=== PATIENT | male | born 1965 | race Hispanic/Latino ===

== ENCOUNTER 2018-10-02 12:08 | Day surgery (SDC) | payer OTHER ==
[~2018-10-02 12:08] MED LIST: ANCEF/STERILE WATER 2 GM/20 ML IV NR
--- NOTE | 2018-10-02 12:45 | Anesthesia Day of Surgery ---
Anesthesia Day of Surgery - Day of Surgery Patient Examined: Yes Patient H&P Reviewed: Yes Patient is NPO: Yes
[2018-10-02] MEDS ORDERED: SUBLIMAZE IV PRN (12:46)
--- NOTE | 2018-10-02 12:46 | Anesthesia Consultation ---
Anesthesia Consult and Med Hx Date of service: 10/02/18 - Airway Anesthetic Teeth Evaluation: Chipped ROM Head & Neck: Adequate Mental/Hyoid Distance: Adequate Mallampati Class: Class II Intubation Access Assessment: Good - Pre-Operative Health Status ASA Pre-Surgery Classification: ASA2 Proposed Anesthetic Plan: General - Pulmonary Hx Smoking: Yes (STOPPED X 6 YRS ( 1 1/2 PPD X 25 YRS)) Hx Sleep Apnea: No (ALYSON PRESCREEN LOW RISK.) - Cardiovascular System Hx Hypertension: No - Other Systems Hx Cancer: No
[2018-10-02] MEDS ORDERED: NEURONTIN PO NR (13:00)
[2018-10-02] MEDS ORDERED: TYLENOL PO NR (13:00)
[2018-10-02] MEDS ORDERED: TYLENOL PO SCH (13:00)
[2018-10-02] MEDS ORDERED: LACTATED RINGERS 1,000 ML IV SCH (13:00)
[2018-10-02] MEDS ORDERED: ZOFRAN ONE (14:00)
[2018-10-02] MEDS ORDERED: DECADRON ONE (14:00)
[2018-10-02] MEDS ORDERED: SUBLIMAZE ONE (14:31)
[2018-10-02] MEDS ORDERED: XYLOCAINE MPF 2% ONE (14:31)
[2018-10-02] MEDS ORDERED: DIPRIVAN 10 MG/ML IV ONE (14:32)
[2018-10-02] MEDS ORDERED: TORADOL ONE (16:04)
--- NOTE | 2018-10-02 16:07 | Short Stay Summary ---
Short Stay Documentation Date of service: 10/02/18 - History H&P: obtained from office - Allergies and Medications Current Medications: Allergies aspirin Allergy (Verified 09/30/18 10:15) Unknown WAS TOLD A CHILD THAT HE WAS ALLERGIC- UNKNOWN REACTION Home Medications Medication Instructions Recorded Confirmed Last Taken Type Acetaminophen [Tylenol Extra 500 mg PO PRN PRN 09/30/18 10/02/18 10/01/18 History Strength] Naproxen Sodium [Aleve] 220 mg PO Q12HR PRN 10/02/18 10/02/18 09/24/18 History Active Medications Acetaminophen (Tylenol) 650 mg PO ONCE NICOLÁS Stop: 10/02/18 23:59 Last Admin: 10/02/18 13:30 Dose: 650 mg Documented by: Cefazolin Sodium (Ancef/Sterile Water 2 Gm/20 Ml) 2 gm IV PREOP NR Stop: 10/02/18 23:59 Celecoxib (Celebrex) 200 mg PO PREOP NR Stop: 10/02/18 23:59 Last Admin: 10/02/18 13:30 Dose: 200 mg Documented by: Fentanyl (Sublimaze) 50 mcg IV Q5MIN PRN PRN Reason: Pain , Severe (7-10) Stop: 10/02/18 23:59 Gabapentin (Neurontin) 300 mg PO PREOP NR Stop: 10/02/18 23:59 Last Admin: 10/02/18 13:30 Dose: 300 mg Documented by: Hydromorphone HCl (Dilaudid) 0.5 mg IV Q10MIN PRN PRN Reason: Pain , Severe (7-10) Stop: 10/02/18 23:59 Lactated Ringer's (Lactated Ringers) 1,000 mls @ 125 mls/hr IV DIRECT NICOLÁS Last Admin: 10/02/18 13:55 Dose: 125 mls/hr Documented by: - Brief post op/procedure progress note Date of procedure: 10/02/18 Pre-op diagnosis: large rt hydrocele Post-op diagnosis: same Procedure: hydrocelectomy, scrotoplasty, darrin drain Anesthesia: DANN Surgeon: MARTI LOTT Estimated blood loss: minimal Pathology: list (sac & skin) Specimen disposition: to lab Condition: stable - Hospital course [facility] - Disposition Condition at discharge: Stable Disposition: DC-01 TO HOME OR SELFCARE Short Stay Discharge Plan Follow up with: PRIMARY CARE, [Primary Care Provider] - 7 Days
--- NOTE | 2018-10-02 16:20 | Operative Report ---
PREOPERATIVE DIAGNOSIS: Large right hydrocele. POSTOPERATIVE DIAGNOSES: Large right hydrocele. PROCEDURE: Right hydrocelectomy, scrotoplasty. SURGEON: Bucky Huber MD ANESTHESIA: General. ESTIMATED BLOOD LOSS: Minimal. FLUIDS: Crystalloid. COMPLICATIONS: No complications. INDICATIONS: This 53-year-old gentleman seen in the office with a large right hydrocele, grapefruit size. Ultrasound was consistent with hydrocele. No other abnormalities. Risks, benefits, and complications were explained. The patient agreed to proceed with surgical intervention. DESCRIPTION OF PROCEDURE: The patient was taken to the operative suite, placed in a supine position. After adequate general anesthesia, he was prepped and draped in a sterile fashion. The skin was marked due to the large size of the hydrocele. The patient is aware that he was actually interested in a scrotoplasty to reduce the size. Wedge resection of the skin was obtained. Hydrocele sac was excised. Serosanguineous fluid was evacuated. A normal viable testicle could be appreciated. The hydrocele sac was also removed and both sent for routine pathologic evaluation. A 2-0 Vicryl Whipstitch was used in a running fashion along the remnant tunica vaginalis. A small incision was made in the skin for a half inch Aaron drain to reduce the risk of recurrence of fluid. Dartos layer was then closed with 2-0 chromic in a running fashion. The skin was closed with 3-0 chromic in interrupted fashion. Fluffs, mesh, pants were placed. The patient tolerated the procedure well and was extubated and taken to recovery room in stable condition. He will go home on [employer]. JOB# [id number] [facility]
[2018-10-02] MEDS: DILAUDID IV PRN ×2 (16:30→16:42)
[2018-10-02] MEDS ORDERED: NORCO 5/325 PO PRN (17:13)
[2018-10-02] MEDS ORDERED: NORCO 5/325 ONE (17:13)
[2018-10-02 17:26] VITALS: BP 134/92
--- NOTE | 2018-10-03 09:10 | Post Anesthesia Evaluation ---
- Post Anesthesia Evaluation Patient Participated: Yes Airway Patent: Yes Stable Respiratory Function: Yes Nausea/Vomiting: No Temp > 96.8F: Yes Pain Manageable: Yes Adequeate Hydration: Yes Anesthesia Complications: No Block Receding Appropriately: Not Applicable Patient on Ventilator: No
== END 2018-10-02 12:09 | disposition home or self-care (01) ==
LOC: OR 12:08
PROVIDERS: ATTEND Urology
DX: N43.2 Other hydrocele (principal); M19.90 Unspecified osteoarthritis, unspecified site; N50.89 Other specified disorders of the male genital organs; Z87.891 Personal history of nicotine dependence; Z79.899 Other long term (current) drug therapy; Z88.6 Allergy status to analgesic agent
CPT/HCPCS: 55040; 55175; 88302; 88305; J0690; J1100; J1170; J1885; J2405; J2704; J3010; J7120

== ENCOUNTER 2020-06-15 11:18 | Emergency (ER) | payer SELFPAY ==
[2020-06-15 12:51] LABS: Hematocrit 44.8 % (35.5-45.6); Hemoglobin 15.3 gm/dl (11.8-15.2); Mean Corpuscular HGB Conc 34 % (32-34); Mean Corpuscular Volume 93 fl (84-94); Platelet Count 225 K/mm3 (140-440); Red Blood Count 4.84 M/mm3 (3.65-5.03); Red Cell Distribution Width 13.6 % (13.2-15.2)
[2020-06-15 13:08] LABS: Alanine Aminotransferase 42 units/L (7-56); Albumin 4.4 g/dL (3.9-5); Blood Urea Nitrogen 10 mg/dL (9-20); Calcium 9.3 mg/dL (8.4-10.2); Hemolysis Index 14
--- NOTE | 2020-06-15 13:08 | Emergency Department Report ---
ED Seizure HPI - General Chief Complaint: Seizure Stated Complaint: SEIZURE Time Seen by Provider: 06/15/20 11:58 Source: family, EMS Mode of arrival: Stretcher Limitations: Altered Mental Status - History of Present Illness MD Complaint: seizure -: Sudden Description of Episode: tonic-clonic movement -: second(s), minutes(s) Witnessed:: Yes Trauma: Yes (? Head) Seizure History: none Place: home Possible Precipitating Event: alcohol withdrawal Associated Symptoms: denies other symptoms Treatments Prior to Arrival: benzodiazepines (5 mg of Versed intranasal per EMS) - Related Data Home Medications Medication Instructions Recorded Confirmed Last Taken Acetaminophen [Tylenol Extra 500 mg PO PRN PRN 09/30/18 10/02/18 10/01/18 Strength] Naproxen Sodium [Aleve] 220 mg PO Q12HR PRN 10/02/18 10/02/18 09/24/18 Allergies Allergy/AdvReac Type Severity Reaction Status Date / Time aspirin Allergy Unknown Verified 06/15/20 12:26 ED Review of Systems ROS: Stated complaint: SEIZURE Other details as noted in HPI Comment: Unobtainable due to pts medical conditions (Patient without active complaint. He denies apparent head injury. Limited secondary to Versed) ED Past Medical Hx - Past Medical History Hx Hypertension: No Hx Arthritis: Yes (WITH JOINT PAIN) Hx HIV: No - Surgical History Additional Surgical History: left knee - Social History Smoking Status: Never Smoker Substance Use Type: Alcohol - Medications Home Medications: Home Medications Medication Instructions Recorded Confirmed Last Taken Type Acetaminophen [Tylenol Extra 500 mg PO PRN PRN 09/30/18 10/02/18 10/01/18 Hist ory Strength] Naproxen Sodium [Aleve] 220 mg PO Q12HR PRN 10/02/18 10/02/18 09/24/18 History ED Physical Exam - General Limitations: Altered Mental Status (Oriented but amnestic) General appearance: alert, in no apparent distress - Head Head exam: Present: atraumatic, normocephalic - Eye Eye exam: Present: normal appearance, PERRL, EOMI. Absent: scleral icterus - ENT ENT exam: Present: mucous membranes moist - Neck Neck exam: Present: normal inspection - Respiratory Respiratory exam: Present: normal lung sounds bilaterally. Absent: respiratory distress - Cardiovascular Cardiovascular Exam: Present: regular rate, normal rhythm. Absent: systolic murmur, diastolic murmur, rubs, gallop - GI/Abdominal GI/Abdominal exam: Present: soft, normal bowel sounds. Absent: distended, tenderness, guarding, rebound - Rectal Rectal exam: Present: deferred - Extremities Exam Extremities exam: Present: normal inspection - Back Exam Back exam: Present: normal inspection - Neurological Exam Neurological exam: Present: alert, oriented X3, CN II-XII intact. Absent: motor sensory deficit - Psychiatric Psychiatric exam: Present: normal affect, normal mood - Skin Skin exam: Present: warm, dry, intact, normal color. Absent: rash ED Course Vital Signs 06/15/20 06/15/20 06/15/20 12:00 12:15 13:00 Temperature 98 F Pulse Rate 100 H 90 74 Respiratory 17 15 15 Rate Blood Pressure 118/78 118/78 113/73 O2 Sat by Pulse 98 94 96 Oximetry 06/15/20 06/15/20 13:45 14:38 Temperature Pulse Rate 78 Respiratory 17 Rate Blood Pressure 127/79 138/80 O2 Sat by Pulse 97 99 Oximetry - Reevaluation(s) Reevaluation #1: Patient was observed without further difficulty. It is presumed that he had an alcohol withdrawal seizure. He is a bit hyponatremic. He was given a liter of normal saline. He will be given seizure precautions, instructed not to drive or operate heavy machinery. He will not be placed on an anticonvulsant at this time. He is referred to primary care for further care and evaluation. 06/15/20 15:32 ED Medical Decision Making - Lab Data Result diagrams: 06/15/20 12:17 06/15/20 12:17 Laboratory Results - last 24 hr 06/15/20 06/15/20 06/15/20 12:17 12:17 12:33 WBC 11.1 H RBC 4.84 Hgb 15.3 H Hct 44.8 MCV 93 MCH 32 MCHC 34 RDW 13.6 Plt Count 225 Sodium 131 L Potassium 4.8 Chloride 97.6 L Carbon Dioxide 21 L Anion Gap 17 BUN 10 Creatinine 0.7 L Estimated GFR > 60 BUN/Creatinine Ratio 14 Glucose 109 H POC Glucose 75 Calcium 9.3 Magnesium 2.10 Total Bilirubin 0.30 Direct Bilirubin < 0.2 Indirect Bilirubin 0.1 AST 35 ALT 42 Alkaline Phosphatase 94 Total Protein 8.0 Albumin 4.4 Albumin/Globulin Ratio 1.2 Urine Color Urine Turbidity Urine pH Ur Specific [place] Urine Protein Urine Glucose (UA) Urine Ketones Urine Blood Urine Nitrite Urine Bilirubin Urine Urobilinogen Ur Leukocyte Esterase Urine WBC (Auto) Urine RBC (Auto) Urine Mucus Urine Opiates Screen Urine Methadone Screen Ur Barbiturates Screen Ur Phencyclidine Scrn Ur Amphetamines Screen U Benzodiazepines Scrn Urine Cocaine Screen U Marijuana (THC) Screen Drugs of Abuse Note 06/15/20 06/15/20 14:06 14:06 WBC RBC Hgb Hct MCV MCH MCHC RDW Plt Count Sodium Potassium Chloride Carbon Dioxide Anion Gap BUN Creatinine Estimated GFR BUN/Creatinine Ratio Glucose POC Glucose Calcium Magnesium Total Bilirubin Direct Bilirubin Indirect Bilirubin AST ALT Alkaline Phosphatase Total Protein Albumin Albumin/Globulin Ratio Urine Color Yellow Urine Turbidity Clear Urine pH 5.0 Ur Specific [place] 1.012 Urine Protein 30 mg/dl Urine Glucose (UA) Neg Urine Ketones Neg Urine Blood Neg Urine Nitrite Neg Urine Bilirubin Neg Urine Urobilinogen < 2.0 Ur Leukocyte Esterase Neg Urine WBC (Auto) < 1.0 Urine RBC (Auto) 4.0 Urine Mucus Few Urine Opiates Screen Negative Urine Methadone Screen Negative Ur Barbiturates Screen Negative Ur Phencyclidine Scrn Negative Ur Amphetamines Screen Negative U Benzodiazepines Scrn Positive Urine Cocaine Screen Negative U Marijuana (THC) Screen Positive Drugs of Abuse Note Disclamer - EKG Data -: EKG Interpreted by [place] EKG shows normal: sinus rhythm, axis, intervals, QRS complexes, ST-T waves Rate: normal - EKG Data Interpretation: no acute changes - Radiology Data Radiology results: report reviewed, image reviewed (CT the head no acute process) Critical care attestation.: If time is entered above; I have spent that time in minutes in the direct care of this critically ill patient, excluding procedure time. ED Disposition Clinical Impression: Hyponatremia Alcohol withdrawal seizure Qualifiers: Complication of substance-induced condition: uncomplicated Qualified Code(s): F10.230 - Alcohol dependence with withdrawal, uncomplicated; R56.9 - Unspecified convulsions Disposition: DC-01 TO HOME OR SELFCARE Is pt being admited?: No Does the pt Need Aspirin: No Condition: Stable Instructions: Alcohol Withdrawal Syndrome, [id number], Seizure, Adult, Alcohol Withdrawal Syndrome, Managing Non-Epileptic Seizures, Adult Additional Instructions: Do not drive or operate machinery until you are cleared by a neurologist or follow-up physician. Adequate fluids. Return any acute change or problem. Referrals: PRIMARY CARE, [Primary Care Provider] - 3-5 Days FRANCISCO J CALDERON MD [Referring] - 3-5 Days [facility] [Provider Group] - 2-3 Days Time of Disposition: 15:34
[2020-06-15 13:17] LABS: BUN/Creatinine Ratio 14; Bilirubin,Direct < 0.2 mg/dL (0-0.2)
[2020-06-15 14:27] LABS: Bilirubin,Urine NEG (Negative); Blood,Urine NEG (Negative); Color,Urine Yellow (Yellow); Mucus,Urine FEW /HPF; Urobilinogen,Urine < 2.0 mg/dL (<2.0); WBC,Urine < 1.0 /HPF (0.0-6.0)
[2020-06-15 14:52] LABS: Amphetamine Screen,Urine Negative; Cocaine Screen,Urine Negative; Methadone Screen,Urine Negative; Opiate Screen,Urine Negative
--- NOTE | 2020-06-15 14:54 | Cat Scan Report ---
CT head/brain wo con INDICATION: SZ head trauma. TECHNIQUE: Routine CT head. All CT scans at this location are performed using CT dose reduction for A AMRIT by means of automated exposure control. COMPARISON: None. FINDINGS: Intracranial: [place]-white matter differentiation is maintained. No intracranial hemorrhage. No extra a xial collection.. No hydrocephalus. No herniation. Sinuses: Paranasal sinuses and mastoid air cells are essentially clear. Orbits: Globes are intact. Calvarium: No acute fracture. IMPRESSION: 1. No acute intracranial abnormality. Signer Name: Aurelio Skinner MD Signed: 06/15/2020 2:49 PM Workstation Name: [id number]
[2020-06-15] MEDS ORDERED: SODIUM CHLORIDE 0.9% 1000 ML 1,000 ML IV ONE (15:07)
[2020-06-15 15:26] LABS: Benzodiazepines Screen,Urine Positive; Cannabinoid Screen,Urine Positive
[2020-06-15 17:25] VITALS: BP 133/81
== END 2020-06-15 17:32 | disposition home or self-care (01) ==
LOC: ED 11:18
DX: E87.1 Hypo-osmolality and hyponatremia (principal); F10.230 Alcohol dependence with withdrawal, uncomplicated; M19.90 Unspecified osteoarthritis, unspecified site; Z79.899 Other long term (current) drug therapy; Z98.890 Other specified postprocedural states; Z88.6 Allergy status to analgesic agent
CPT/HCPCS: 36415; 70450; 80048; 80076; 80307; 81001; 82962; 83735; 85027; 93005; 96360; 99285; J7030

== ENCOUNTER 2020-06-15 17:52 | Emergency (ER) | payer SELFPAY ==
[2020-06-15 18:15] VITALS: BP 149/90
== END 2020-06-15 18:12 | disposition home or self-care (01) ==
LOC: ED 17:52
DX: R56.9 Unspecified convulsions (principal); Z53.21 Procedure and treatment not carried out due to patient leaving prior to being seen by health care provider